=== PATIENT | male | born 1940 | race Caucasian/White ===

== ENCOUNTER 2025-02-27 10:15 | Outpatient (CLI) | payer OTHER | END 2025-02-27 10:16 | disposition home or self-care (01) | LOC: PET 10:15 | PROVIDERS: ATTEND Nurse Practitioner Gerontology | DX: R91.8 Other nonspecific abnormal finding of lung field (principal); J90 Pleural effusion, not elsewhere classified; J98.4 Other disorders of lung | CPT/HCPCS: 78815; A9552 ==